=== PATIENT | male | born 1985 | race Caucasian/White ===

== ENCOUNTER 2017-03-01 11:21 | Emergency (ER) | payer MEDICAID ==
[2017-03-01] MEDS ORDERED: IBUPROFEN 600 MG TABLET PO ONE (12:05)
[2017-03-01] MEDS ORDERED: ACETAMINOPHEN 325 MG TABLET PO ONE (12:05)
[2017-03-01] MEDS ORDERED: ONDANSETRON ODT 4 MG TAB.RAPDIS ONE (12:05)
--- NOTE | 2017-03-01 12:26 | ER NURSING DOCUMENTATION ---
Nurse's Notes [facility] Name:Jakob Crane Age:31 yrs Sex:Male :1985 Arrival Date:03/01/2017 Time:11:21 Bed2 Private MD: Diagnosis:Cephalgia-: 2nd to Altitude Illness;Dehydration;Viral Syndrome - Influenza Presentation: 03/01 11:31 Acuity: SANTIAG[place] 3 lp 11:35 Presenting complaint: Patient states: Headache, nausea and fever. Transition of care: lp Home. 11:35 Method Of Arrival: Private Vehicle lp Triage Assessment: 11:37 Headache History: Denies prior headaches. General: Appears in no apparent distress, lp Behavior is appropriate for age. Pain: Complains of pain in top of head, right voodoo and left voodoo Pain currently is 3 out of 10 on a pain scale. Pain began 2-3 days ago Also complains of decreased appetite, nausea. EENT: No deficits noted. Neuro: Level of Consciousness is awake, alert, Oriented to person, place, time, event, Financial Analysis Manager are equal bilaterally Moves all extremities. Gait is steady, Speech is normal. Cardiovascular: Heart tones S1 S2. Respiratory: Airway is patent Trachea midline Respiratory effort is even, unlabored, Respiratory pattern is regular, Breath sounds are clear bilaterally. GI: Bowel sounds present X 4 quads. Abd is soft and non tender. : No deficits noted. Derm: No deficits noted. Musculoskeletal: No deficits noted. Historical: - Allergies: No known drug Allergies; - Home Meds: 1. None - PMHx: None; - PSHx: Pin in R middle finger; - Tetanus: < 10 years. - Ebola Screening: : Patient negative for fever greater than or equal to 101.5 degrees Fahrenheit, and additional compatible Ebola Virus Disease symptoms. Patient denies exposure to infectious person. Patient denies travel to an Ebola-affected area in the 21 days before illness onset. . - Immunization history: Flu Vaccine < 1 year. - Social history: Smoking status: unknown if patient ever smoked tobacco. Screenin:40 Infectious Disease Risk None. Abuse screen: Denies threats or abuse. Denies injuries lp from another. Nutritional screening: No deficits noted. Assessment: 11:40 Pain: Complains of pain in left voodoo and right voodoo and top of head Pain currently lp is 3 out of 10 on a pain scale. Vital Signs: 11:39 BP 137 / 89; Pulse 67; Resp 16; Temp 98.5(TE); Pulse Ox 99% on R/A; Weight 64.41 kg; lp Height 5 ft. 11 in. (180.34 cm); Pain 3/10; 12:25 Pain 0/10; rh 11:39 Body Mass Index 19.80 (64.41 kg, 180.34 cm) lp [place] Coma Score: 11:40 Eye Response: spontaneous(4). Verbal Response: oriented(5). Motor Response: obeys cd commands(6). Total: 15. ED Course: 11:26 Patient arrived in ED. jl 11:31 Bebe Floyd, DELIO is Primary Nurse. lp 11:31 Triage completed. lp 11:38 Aaron Rodarte MD is Attending Physician. cd 11:[address] Rodarte notified. lp 11:40 Valuables Remains with patient Patient has correct armband on for positive lp identification. Bed in low position. Call light in reach. Administered Medications: 11:53 Drug: Acetaminophen 975 mg; Route: PO; lp 12:17 Follow up: Response: No adverse reaction; No change in condition lp 11:53 Drug: Ibuprofen 600 mg; Route: PO; lp 12:17 Follow up: Response: No adverse reaction; No change in condition lp 11:53 Drug: Zofran 4 mg; Route: PO; lp 12:17 Follow up: Response: No adverse reaction; Nausea is decreased lp Outcome: 12:20 Discharge ordered by . cd 12:25 Discharged to home ambulatory, with family. 12:25 Condition: improved 12:25 Discharge Assessment: Patient awake, alert and oriented x 3. No cognitive and/or functional deficits noted. Patient verbalized understanding of disposition instructions. 12:25 Discharge instructions given to patient, family, Instructed on discharge instructions, follow up and referral plans. Demonstrated understanding of instructions. 12:25 Patient left the ED. 03/02 14:18 Discharge F/U Call: Spoke with: patient. other: Name: pt is feeling better. Pt has st no questions or concerns. Signatures: Lissette Lopez RN RN st Pavlish, Lena, RN RN lp Daley, Chris, MD MD Estella Brewer Matthew Santos
--- NOTE | 2017-03-01 12:26 | ER PHYSICIAN DOCUMENTATION ---
Physician Documentation [facility] Name:Jakob Crane Age:31 yrs Sex:Male :1985 Arrival Date:03/01/2017 Time:11:21 Bed2 Private MD: Aaron Corral Disposition: 03/01/17 12:20 Discharged to Home/Self Care. Impression: Cephalgia - : 2nd to Altitude Illness, Dehydration, Viral Syndrome - Influenza. - Condition is Good. - Discharge Instructions: DEHYDRATION (8y-Adult), HEADACHE, Unspecified, Disease, Viral - VIRAL SYNDROME (Child). - Medical Reconciliation form form. - Follow up: Private Physician; When: 7 - 10 days; Reason: Recheck today's complaints, Continuance of care. - Problem is new. - Symptoms have improved. - Notes: Take Ibuprofen 600mg by mouth every 6 hours with food for headache and fever for 2 days Take Tylenol 650mg by mouth every 6 hours with food for 2 days Drink 2 - 3 quarts of fluids every day. Avoid higher elevation for 2 days. No alcohol or exercise. If symptoms worsen, descend to a lower elevation. HPI: 03/01 11:30 This 31 yrs old Male presents to ER via Private Vehicle with complaints of cd Headache > 24hrs Old, Nausea. 11:30 The patient complains of pain to the forehead. The patient describes the headache as cd aching, constant. Onset: The symptoms/episode began/occurred acutely, yesterday. Associated signs and symptoms: Pertinent positives: fever, nausea, sinus congestion, Pertinent negatives: altered mental status, neck stiffness, sinus tenderness, vision changes, vomiting. 11:30 Associated signs and symptoms: Pertinent negatives:. Severity of symptoms: At its worst cd the pain was moderate, in the emergency department the pain has resolved. Risk factors for subarachnoid hemhorrage: not applicable. Patient reports recently [place] 8,000' [place] from [place]. He has had very little PO fluids. Historical: - Allergies: No known drug Allergies; - Home Meds: 1. None - PMHx: None; - PSHx: Pin in R middle finger; - Tetanus: < 10 years. - Ebola Screening: : Patient negative for fever greater than or equal to 101.5 degrees Fahrenheit, and additional compatible Ebola Virus Disease symptoms. Patient denies exposure to infectious person. Patient denies travel to an Ebola-affected area in the 21 days before illness onset. . - Immunization history: Flu Vaccine < 1 year. - Social history: Smoking status: unknown if patient ever smoked tobacco. ROS: 11:40 Constitutional: Positive for fever, poor PO intake, Negative for chills. cd 11:40 Neck: Negative for pain at rest, stiffness. 11:40 Neuro: Positive for headache, Negative for altered mental status, dizziness, near syncope, weakness. 11:40 All other systems are negative. Exam: 11:40 Head/Face: Normocephalic, atraumatic. cd ENT: Nares patent. No nasal discharge, no septal abnormalities noted. Tympanic membranes are normal and external auditory canals are clear. Oropharynx with no redness, swelling, or masses, exudates, or evidence of obstruction, uvula midline. Mucous membranes dry. Neck: Trachea midline, no thyromegaly or masses palpated, and no cervical lymphadenopathy. Supple, full range of motion without nuchal rigidity, or vertebral point tenderness. No Meningismus. Cardiovascular: Regular rate and rhythm with a normal S1 and S2. No gallops, murmurs, or rubs. Normal PMI, no JVD. No pulse deficits. Respiratory: Lungs have equal breath sounds bilaterally, clear to auscultation and percussion. No rales, rhonchi or wheezes noted. No increased work of breathing, no retractions or nasal flaring. 11:40 Neuro: Awake and alert, GCS 15, oriented to person, place, time, and situation. cd Cranial nerves II-XII grossly intact. Motor strength 5/5 in all extremities. Sensory grossly intact. Cerebellar exam normal. Normal gait. 11:40 Constitutional: The patient appears alert, awake, non-diaphoretic, non-toxic, well developed, well nourished, anxious. 11:40 Eyes: Pupils: equal, round, and reactive to light and accomodation, Extraocular movements: intact throughout. 11:40 Neuro: Orientation: is normal, Mentation: is normal, Cranial nerves: CN II- XII are normal as tested, Cerebellar function: is grossly normal, Motor: is normal, Gait: is steady. Vital Signs: 11:39 BP 137 / 89; Pulse 67; Resp 16; Temp 98.5(TE); Pulse Ox 99% on R/A; Weight 64.41 kg; lp Height 5 ft. 11 in. (180.34 cm); Pain 3/10; 12:25 Pain 0/10; rh 11:39 Body Mass Index 19.80 (64.41 kg, 180.34 cm) lp [place] Coma Score: 11:40 Eye Response: spontaneous(4). Verbal Response: oriented(5). Motor Response: obeys cd commands(6). Total: 15. MDM: 11:38 Patient medically screened. cd 12:15 Data reviewed: vital signs, nurses notes, old medical records, and as a result, I will cd discharge patient. Data interpreted: Pulse oximetry: on room air is 99 %. Interpretation: normal. 12:25 Counseling: I had a detailed discussion with the patient and/or guardian regarding: the cd historical points, exam findings, and any diagnostic results supporting the discharge/admit diagnosis, the need for outpatient follow up, for a recheck, with the patient's primary care provider, to return to the emergency department if symptoms worsen or persist or if there are any questions or concerns that arise at home. 03/01 12:09 Order name: INFLUENZA A/B; Complete Time: 12:12 EDMS 18 12:12 Interpretation: Normal. cd 03/01 11:46 Order name: Fluid Challenge; Complete Time: 11:53 cd Dispensed Medications: 11:53 Drug: Acetaminophen 975 mg; Route: PO; lp 12:17 Follow up: Response: No adverse reaction; No change in condition lp 11:53 Drug: Ibuprofen 600 mg; Route: PO; lp 12:17 Follow up: Response: No adverse reaction; No change in condition lp 11:53 Drug: Zofran 4 mg; Route: PO; lp 12:17 Follow up: Response: No adverse reaction; Nausea is decreased lp Signatures: Bebe Floyd RN RN lp Aaron Rodarte MD MD Estella Brewer
== END 2017-03-01 12:26 | disposition home or self-care (01) ==
LOC: ER 11:21
DX: R51 Headache (principal); T70.29XA Other effects of high altitude, initial encounter; E86.0 Dehydration; B34.9 Viral infection, unspecified; R50.9 Fever, unspecified; R11.0 Nausea; J34.89 Other specified disorders of nose and nasal sinuses
CPT/HCPCS: 87449; 99283